=== PATIENT | male | born 1985 | race Hispanic/Latino ===

== ENCOUNTER 2017-06-10 11:20 | Emergency (ER) | payer SELFPAY ==
[2017-06-10 12:14] VITALS: BP 113/80
[2017-06-10] MEDS ORDERED: XYLOCAINE 1% 20 mL INFILTRATI ONE (13:12)
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
[2017-06-10] MEDS ORDERED: NACL 0.9% 500 ML IR ONE (13:45)
== END 2017-06-10 18:16 | disposition home or self-care (01) ==
LOC: ED 11:20
DX: S31.31XA Laceration without foreign body of scrotum and testes, initial encounter (principal); F43.10 Post-traumatic stress disorder, unspecified; W34.09XA Accidental discharge from other specified firearms, initial encounter; Y93.89 Activity, other specified; Y92.89 Other specified places as the place of occurrence of the external cause; Y99.8 Other external cause status